=== PATIENT | male | born 1995 | race Two or more races ===

== ENCOUNTER 2020-04-28 21:42 | Emergency (ER) | payer SELFPAY ==
[~2020-04-28] VITALS: Ht 177.8 cm; Wt 72.6 kg
[2020-04-28 21:50] VITALS: BP 140/69
--- NOTE | 2020-04-28 21:50 | NUR ---
ED Nurse Note: Walk-in patient with complaints of palpitations and burning at the chest. Patient reports taking workout supplements and a history of cocaine use.
--- NOTE | 2020-04-28 22:00 | Emergency Room Report ---
History of Present Illness General Chief Complaint: Palpitations Source: Patient Present Illness HPI 24-year-old male with no prior medical history complains of palpitations x 2 weeks. Intermittently associated with substernal nonradiating pinpoint chest pains that last a few seconds at a time. Complains of nausea and constipation. States that when his symptoms become severe, he becomes anxious and is mildly short of breath. States that he attributes these symptoms to worsening after taking pre-workout, so he stopped which moderately improved his symptoms. Denies fever, chills, hemoptysis, history of blood clot, recent sick contacts antibiotic use travel, surgery or immobilization. 14 days The patient's symptoms were gradual onset, severity was moderate, duration since 14 days . Quality: Anxiety, palpitations Past medical history: None Past surgical history: Tonsillectomy, left hand surgery Smoking: ++ Alcohol use: ++ Drug use: Cocaine 2 months ago Review of systems: CONST: No fevers or chills, No night sweats PULMONARY: No productive cough, ++shortness of breath CARDIAC: ++ chest pain, ++ palpitations GI: ++ vomiting, No diarrhea , No melena_or_BRBPR : No dysuria, No hematuria, No discharge NEURO: No new_focal_weakness_or_numbness, No confusion, No vision changes 14 point Review of Systems is otherwise negative except per HPI Physical Exam: GENERAL: Awake_alert_ nontoxic, no acute distress Spo2 100% on RA -normal EYES: Extraocular muscles are intact. Conjunctivae clear. Lids without swelling ENT: External nose and ear normal_in_appearance. Oropharynx clear. Head_atraumatic, Moist_oral_mucosa NECK: No JVD. No meningismus. No thyromegaly. Supple. Trachea midline RESP: Normal respiratory effort. Symmetric rise. No stridor. Clear_to_auscultation_No_rales_No_wheezes CARDIAC: Regular rate and regular rhytm. No_significant pedal edema. ABDOMEN: Soft. Nondistended. Nontender_No_rebound_or_guarding. MSK: Normal muscle tone, without rigidity. Extremities without asymmetric deformity or swelling. SKIN: Warm and dry. No visible cyanosis or pallor NEUROLOGIC: Alert, oriented x3. Motor_and_sensation_grossly_intact. No truncal ataxia. Gait_normal Psych: Normal mood and affect, normal judgment and insight - COORDINATION OF CARE Case was discussed with: Patient Any labs and imaging that were ordered were interpreted as part of the medical decision making: Medical Decision Making/Plan: Differential includes acute coronary syndrome, pulmonary embolism, pneumonia, aortic dissection, pericardial tamponade, musculoskeletal chest pain, among others. Patient is nontoxic and well-appearing with stable vitals signs. Chest pain has resolved. The previous episodes have happened intermittently over the past 2 weeks and only a few seconds at a time. The patients pain appears consistent with a musculoskeletal origin versus associated with anxiety. EKG shows normal sinus rhythm without any obvious signs of ischemia. CXR shows no evidence of pneumothorax, pneumonia, or significant pleural effusion. Dimer negative Troponin negative. TSH mildly elevated. I have informed patient of this incidental finding and instructed him to follow up with his PMD for further testing. Will not start empiric therapy from ED. Pt will f/u with PMD in 1-2 days regarding abnormal TSH as discussed. Acute coronary syndrome is unlikely and the patient is low risk, pain is atypical, nonexertional, and troponin is negative with well over 6 hrs of symptoms. The pain is not classic for pericarditis or myocarditis, and the patient has no significant risk factors for a pericardial effusion and has stable vitals signs, unlikely to have tamponade. Pain is not likely to be pulmonary embolism (PERC negative), and no significant PE risk factors. The patient has no significant risk factors for aortic dissection, no history of connective tissue disorder, and the patients pain is not severe, radiating to the back, or tearing in nature. They have normal bilateral radial and pedal pulses. I will director of group counseling program the patient to stop doing cocaine and pre-workout as it is likely the reason he is having palpitations due to the sympathomimetic effect of these substances. Patient verbalizes his understanding. Patient observed for several hours in the ED, ECG with no emergent findings, patient discharged with no dangerous vital signs, patient instructed to follow up with PMD in the next 1-2 days to be referred for a treadmill stress test within the next 48-72 hours. HEART score < 4, which indicates low risk, so the patient can be safely discharged with the understanding that they need to make an appointment with a primary care doctor to be referred for a stress test within the next 48-72 hours, or if they cannot arrange that they are to return to the ED, or sooner than that if they have any changing, persistent, or worsening symptoms. Allergies: Coded Allergies: No Known Allergies (Unverified , 04/28/20) COVID-19 Screening Contact w/high risk pt: No Experienced COVID-19 symptoms?: No COVID-19 Testing performed AIX ARCHITECT: Yes COVID-19 Screening: Negative COVID-19 COVID-19 Testing Source: march 2020 Nursing Documentation-[facility] Past Medical History: No Stated History Physical Exam Vital Signs Date Time Temp Pulse Resp B/P (MAP) Pulse Ox O2 Delivery O2 Flow Rate FiO2 04/28/20 21:50 98.1 78 18 140/69 (92) 96 Room Air Sp02 EP Interpretation: reviewed, normal Medical Decision Making Diagnostic Impression: Primary Impression: Palpitations Additional Impressions: Polysubstance dependence Tobacco consumption TSH elevation EKG Diagnostic Results PA Scribe Text 12-lead EKG (interpreted by me) Time: 2201 Indication: Rhythm analysis Tracing visualized and Interpreted by me. Rhythm: Normal sinus rhythm Rate: 69 bpm QTc: 415 Morphology: No_significant_ST_elevations_or_depressions, No STEMI Impression: Normal_sinus_rhythm_without_significant_abnormality Rhythm Strip Diag. Results Rhythm Strip Time: 22:14 EP Interpretation: yes Rate: 75 Rhythm: NSR, no PVC's, no ectopy Chest X-Ray Diagnostic Results Chest X-Ray Diagnostic Results : PA Scribe Text XRAY Chest 1v FINDINGS: Lungs: Unremarkable. No consolidation. Pleural space: Unremarkable. No pneumothorax. Heart: Unremarkable. No cardiomegaly. Mediastinum: Unremarkable. Bones/joints: No acute abnormality IMPRESSION: Unremarkable chest. Read by me Reevaluation Time: 22:00 Last Vital Signs Date Time Temp Pulse Resp B/P (MAP) Pulse Ox O2 Delivery O2 Flow Rate FiO2 04/28/20 21:50 98.1 78 18 140/69 (92) 96 Room Air Status: improved Disposition: HOME, SELF-CARE Admit Decision Time: 22:30 Condition: Stable Scripts Naproxen* (NAPROXEN*) 500 Mg Tablet. 500 MG ORAL TWICE A DAY for 14 Days, #28 TAB Prov: Lidia Meng D.O. 04/28/20 Ondansetron Odt* (ZOFRAN ODT*) 4 Mg Tab.rapdis 4 MG BC EVERY 6 HOURS PRN for Nausea & Vomiting, #10 TAB 0 Refills Prov: Lidia Meng D.O. 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 Stop drinking alcohol. Stop taking supplements/pre-workout. Stop doing cocaine. Follow up with your doctor regarding your abnormal thyroid test result for ultrasound and blood labs as we discussed. Follow-up with your doctor sooner if your condition requires a more timely clinical reevaluation. Return to the emergency department immediately if you feel that your condition is worsening or if you have any new or concerning symptoms. Review your discharge instructions and take any prescriptions given as instructed. [facility] PROVIDES FREE OR LOW-COST HEALTH SERVICES TO PEOPLE WHO CAN SHOW PROOF THAT THEY LIVE IN [facility]. TO FIND MORE CLINICS PARTNERED WITH [facility] TO PROVIDE SERVICE, PLEASE CALL . Lidia Meng D.O. Apr 28, 2020 22:00
[2020-04-28] MEDS ORDERED: ONDANSETRON ODT4 MG BC (22:15)
[2020-04-28] MEDS ORDERED: NAPROXEN500 M1 ORAL (22:15)
--- NOTE | 2020-04-28 22:15 | NUR ---
ED Nurse Note: started at left AC, 20G, patent with blood return. Patient tolerated moderately well with therapeutic technique. Blood specimen collected and sent to lab.
[2020-04-28 22:29] VITALS: BP 135/74
[2020-04-28] MEDS ORDERED: Naproxen 500mg tab ORAL ONE (22:30)
[2020-04-28 22:37] LABS: BASOPHILS % (AUTO) 1.3 % (0.0-2.0); EOSINOPHILS % (AUTO) 10.7 % (0.0-3.0); HEMATOCRIT 47.6 % (42.0-52.0); HEMOGLOBIN 15.8 G/DL (14.2-18.0); LYMPHOCYTES % (AUTO) 24.1 % (20.0-45.0); MEAN CORPUSCULAR VOLUME 95 FL (80-99); MONOCYTES % (AUTO) 7.8 % (1.0-10.0); NEUTROPHILS % (AUTO) 56.1 % (45.0-75.0); PLATELET COUNT 254 K/UL (150-450); RED BLOOD COUNT 5.03 M/UL (4.70-6.10)
--- NOTE | 2020-04-28 22:45 | Diagnostic Imaging Report ---
EXAM: XR Chest, 1 View CLINICAL HISTORY: PAIN TECHNIQUE: Frontal view of the chest. COMPARISON: No relevant prior studies available. FINDINGS: Lungs: Unremarkable. No consolidation. Pleural space: Unremarkable. No pneumothorax. Heart: Unremarkable. No cardiomegaly. Mediastinum: Unremarkable. Bones/joints: No acute abnormality IMPRESSION: Unremarkable chest.
[2020-04-28 22:51] LABS: ANION GAP 6 mmol/L (5-15); BLOOD UREA NITROGEN 15 mg/dL (7-18); CALCIUM 8.9 MG/DL (8.5-10.1); CARBON DIOXIDE 32 MMOL/L (21-32); CHLORIDE 103 MMOL/L (98-107); CREATININE 0.9 MG/DL (0.55-1.30); POTASSIUM 3.7 MMOL/L (3.5-5.1); SODIUM 141 MMOL/L (136-145)
[2020-04-28 23:04] LABS: ALANINE AMINOTRANSFERASE 34 U/L (12-78); ALBUMIN 4.3 G/DL (3.4-5.0); ALBUMIN/GLOBULIN RATIO 1.4 (1.0-2.7); ALKALINE PHOSPHATASE 77 U/L (46-116); ASPARTATE AMINO TRANSFERASE 19 U/L (15-37); BILIRUBIN,TOTAL 0.9 MG/DL (0.2-1.0)
[2020-04-28 23:14] VITALS: BP 135/74
--- NOTE | 2020-04-28 23:14 | NUR ---
ER DISCHARGE NOTE: Patient is cleared to be discharged per ERMD, pt is aox4, on room air, with stable vital signs. pt was given dc and prescription instructions, pt was able to verbalize understanding, pt id band and iv site removed without complications. pt is able to ambulate with steady gait. pt took all belongings.
== END 2020-04-28 23:14 | disposition home or self-care (01) ==
LOC: EMR 22:06
DX: R00.2 Palpitations (principal); F19.20 Other psychoactive substance dependence, uncomplicated; R07.9 Chest pain, unspecified; K59.00 Constipation, unspecified; R11.0 Nausea; F41.9 Anxiety disorder, unspecified; Z72.0 Tobacco use
CPT/HCPCS: 36415; 71045; 80053; 83880; 84443; 84484; 85025; 85379; 85610; 85730; 93005; 99284